=== PATIENT | female | born 1995 | race Two or more races ===

== ENCOUNTER 2018-03-17 17:32 | Inpatient (IN) ==
[2018-03-17] MEDS ORDERED: fentaNYL Citrate Inj 100 MCG/2 ML Ampul IV.PUSH PRN ×2 (17:38)
[2018-03-17] MEDS ORDERED: Naloxone Inj 0.4 MG/ML Vial IV.PUSH PRN (17:38)
[2018-03-17] MEDS ORDERED: Sodium Chlor 0.9% Inj 500 ML IV.SIG PRN (17:38)
[2018-03-17] MEDS ORDERED: Sod Chloride 0.9% Inj 1,000 ML IV.CONT PRN (17:38)
[2018-03-17] MEDS ORDERED: Citric Acid/Sodium Citrate Liq 30 ML UDC PO SCH (17:45)
[2018-03-17] MEDS ORDERED: Oxytocin 30 Units/500ml Premix 30 UNITS/500 ML BAG IV.SIG ONE (18:00)
[2018-03-17 18:50] LABS: Baso % (Auto) 0.5 % (0.0-2.0); Eos # (Auto) 0.1 th/mm3 (0.0-0.4); Eos % (Auto) 1.2 % (0.0-4.0); Hematocrit 35.7 % (35.0-46.0); Hemoglobin 11.7 gm/dL (11.6-15.3); Lymph # (Auto) 1.4 th/mm3 (1.0-4.8); Lymph % (Auto) 15.6 % (9.0-44.0); Mean Corpuscular HGB Conc 32.7 % (32.0-36.0); Mean Corpuscular Hemoglobin 30.2 pg (27.0-34.0); Mean Corpuscular Volume 92.5 fL (80.0-100.0); Mean Platelet Volume 10.1 fL (7.0-11.0); Mono # (Auto) 0.4 th/mm3 (0.0-0.9); Neut # (Auto) 6.9 th/mm3 (1.8-7.7); Neut % (Auto) 77.7 % (16.0-70.0); Platelet Count 307 th/mm3 (150-450); Red Blood Count 3.86 mil/mm3 (4.00-5.30); Red Cell Distribution Width 14.4 % (11.6-17.2); White Blood Count 8.9 th/mm3 (4.0-11.0)
--- NOTE | 2018-03-17 18:56 | MH ---
cc: Any Leon MD DATE OF ADMISSION: 03/17/2018 INDICATIONS FOR OBSERVATION: A 37 week intrauterine with contractions and cervical change, HIV positive, recent HSV infection that appears cleared, schizoaffective disorder, hepatitis C. HISTORY OF PRESENT CONDITION: Natasha is a 22-year-old, single female, 1, para 0, with LMP 06/17/2017 and EDC 04/07/2018 by 13-week ultrasound. By her LMP, it should be 03/24/2017, but a dating sonogram at 13 weeks gave a greater than 2-week differential. She is currently at 37 weeks by this ultrasound and 39 weeks by her LMP. She has been a patient of my practice since 13 weeks. She came to the office today complaining of back pain and pelvic pressure. Her cervix is 1-2, 90%, 0 station. Estimated weight is 7 pounds and pelvis is clinically adequate, but unproven. history is highly significant for HIV diagnosed 1 year prior, hepatitis C, history of IV drug use, recurrent genital herpes last infection within the last month. Rarden I Diagnosis: Schizoaffective versus schizophrenia. The patient has not had labor, gestational diabetes or hypertensive disease. I met her through the [facility] where she was incarcerated for possession of cocaine. She had been incarcerated for approximately a month and had learned that she was while incarcerated. She had not been sure at that point, if she was adopting the baby out. She was not receiving any retrovirals at that time. She told me that she had been told that her viral load was low. She stated her last IV drug use, had been 6 months prior to our initial visit in September, but she had been snorting heroin up to 1 month prior to her initial visit. She has since then had consistent care in the office and has been compliant, despite needing to use [facility] from [place] for her visits. She is currently staying with her boyfriend who is a and who is considerably older, but has been very supportive of her. At her initial couple visits, she was exceptionally manic and difficult to work with. She was started on Risperdal at the same time she was started on her retroviral, specifically Descovy and Tivicay. Her Risperdal was at 3 mg daily and within a week or 2 of initiating the Risperdal, she became very appropriate and logical in her thinking and behavior. Her initial viral load in September was 39,000. Her most recent viral load was nondetectable. She is hep C positive and I do not have a recent hep C viral load. She had a herpetic outbreak about 3 weeks ago and has been on valacyclovir ever since. We were not aware that she had a history of genital herpes, prior to that outbreak. She is situated with [facility] and other care coordinated services through the critical access hospital and receiving [employer], food stamps, I believe housing support. She sees Dr. Domenic Julian for her infectious disease specialist, and me for her obstetrical care. She denies today leaking or bleeding. She has no nausea, vomiting, headache, blurred vision, or right upper quadrant tenderness. She states she is having no perineal itching, burning, or tingles, and that the herpetic infection she noted 3 weeks ago has cleared up completely. She has been compliant with her Descovy and Tivicay, Risperdal, Bactrim and Valtrex. is a vertex female with a posterior placenta. surveillance has been reassuring. She has not been smoking, drinking, or using illicit drugs. PHYSICAL EXAMINATION: GENERAL: She is a well-developed, overweight female, in no acute distress. She is alert and oriented x 3, appropriate, logical and linear. She has gained over 80 pounds during this ; I believe that is largely due to the Risperdal. She has no thyroid enlargement. She has no lymphadenopathy. LUNGS: Clear to auscultation. HEART: Rate and rhythm are regular. ABDOMEN: Fundus is term. The is vertex. Fluid level is normal. I think her HARRY is about 15. She got 8/8 on biophysical profile today. She has no hepatosplenomegaly. No CVA tenderness. No inguinal adenopathy. Perineum is healthy without any ulcers, lesions, HPV changes. Cervix is 2 cm, 90%, very low. EXTREMITIES: Reveal mild edema. No significant varicosities. No lesions of concern. IMPRESSION: 1. A 37-week intrauterine by 13-week ultrasound. HIV identified 1 year prior, initiation of retrovirals after first trimester, recurrent genital herpes, with an episode approximately 3 weeks ago, positive for hepatitis C on screening. 2. Schizoaffective disorder versus schizophrenia on Risperdal. 3. Poor dentition. 4. Nicotine disorder. PLAN: Begin AZT on admission, obtain viral loads and other serology needed. Call infectious disease. Dr. Julian feels at this time, it is reasonable for her to proceed with a vaginal delivery if she desires. We are to get a PCR on the cord blood at delivery, and we will notify [facility] of her admission and next steps. Any Leon MD PPC/gregorio , 05:36 PM , 05:51 PM
[2018-03-17] MEDS ORDERED: DEXTROSE 5% IV.SIG ONE ×2 (20:00)
[2018-03-17] MEDS ORDERED: ZIDOVUDINE IV.SIG ONE ×2 (20:00)
[2018-03-17] MEDS ORDERED: WATER IV.SIG ONE ×2 (20:00)
[2018-03-17] MEDS ORDERED: Oxytocin 30 Units/500ml Premix 30 UNITS/500 ML BAG IV.SIG PRN (20:19)
--- NOTE | 2018-03-17 20:25 | P.OBANTE ---
Subjective Interval History: Natasha states she has not been taking her respirdal because it made her too lethargic. She remains lucid and appropriate so we will not restart at this time. Objective Vital Signs and I&O: Vital Signs 03/17/18 18:24 03/17/18 18:30 03/17/18 19:37 Temperature 98.0 F Pulse Rate 76 82 Respiratory Rate 16 Blood Pressure 139/67 135/71 Intake & Output 03/17/18 03/17/18 03/18/18 06:59 18:59 06:59 Weight 122.47 kg Lab and Micro Results: Laboratory Results - last 24 hr 03/17/18 03/17/18 18:00 18:00 WBC 8.9 RBC 3.86 L Hgb 11.7 Hct 35.7 MCV 92.5 MCH 30.2 MCHC 32.7 RDW 14.4 Plt Count 307 MPV 10.1 Neut % (Auto) 77.7 H Lymph % (Auto) 15.6 Edmunds % (Auto) 5.0 Eos % (Auto) 1.2 Baso % (Auto) 0.5 Neut # (Auto) 6.9 Lymph # (Auto) 1.4 Edmunds # (Auto) 0.4 Eos # (Auto) 0.1 Baso # (Auto) 0.0 WBC Differential . Differential Comment Auto diff final Blood Type A Positive Blood Type Recheck Required Physical Exam: GENERAL: Well-nourished, well-developed patient. CARDIOVASCULAR: Regular rate and rhythm without murmurs, gallops, or rubs. RESPIRATORY: Breath sounds equal bilaterally. No accessory muscle use. ABDOMEN/GI: Abdomen soft, non-tender. term fundus cervix 1+90-1 EFW 7 pounds pelvis clinically adequate unproven strip category one EXTREMITIES: No cyanosis or edema, non-tender, without signs of DVT. Assessment and Plan - Diagnosis (1) HIV (human immunodeficiency virus) risk factors complicating Code(s): O09.899 - Supervision of other high risk pregnancies, unspecified trimester Status: Acute (2) HSV infection Code(s): F20.9 - Schizophrenia, unspecified Status: Acute (3) Anxiety and depression Code(s): F41.9 - Anxiety disorder, unspecified; F32.9 - Major depressive disorder, single episode, unspecified Status: Acute (4) HSV infection Code(s): F20.9 - Schizophrenia, unspecified Status: Acute - Plan reviewed discussion with Dr. Julian. He reports viral load undetectable for HIV and HSV and that she is a candidate for vaginal delivery starting her AZT now. will begin low dose pitocin continue her usual retrovirals continue valcyclovir we will not resume her respirdal since she has not been taking this
[2018-03-17 20:46] LABS: Bilirubin,Urine Negative (Negative); Clarity,Urine Clear (Clear); Color,Urine Yellow (Yellw/Straw); Glucose,Urine (UA) Negative (Negative); Leukocyte Esterase,Urine Negative (Negative); Mucus,Urine Few /lpf (Occasional); Nitrite,Urine Negative (Negative); Specific Gravity,Urine 1.023 (1.002-1.035); Squamous Epithelial Cell,Urine 1 /hpf (0-5); Urobilinogen,Urine 4 or Greater mg/dL (Less than 2)
[2018-03-17 20:49] LABS: Amphetamine Urine With Conf Neg (Neg); Benzodiazepine Urine With Conf Neg (Neg)
[2018-03-17 21:04] LABS: Albumin 2.5 g/dL (3.4-5.0)
[2018-03-17 21:06] LABS: Total Protein 7.1 g/dL (6.4-8.2)
[2018-03-17] MEDS: valACYclovir 500 MG Tab PO SCH (22:00)
[2018-03-18] MEDS ORDERED: Penicillin G Potassium Inj 5,000,000 UNIT in Sodium Chloride 0.9% Inj 100 ML IV.SIG ONE (02:37)
[2018-03-18] MEDS: Penicillin G Potassium Inj 2,500,000 UNIT in Sodium Chlor 0.9% Inj 100 ML IV.SIG SCH ×4 (07:24→21:13)
[2018-03-18] MEDS ORDERED: fentaNYL 2MCG-Bupiv 0.125% Epi 150 ML EPIDURAL ONE (09:12)
[2018-03-18] MEDS ORDERED: Lidocaine PF 1.5% Inj 20 ML Ampule ONE (09:22)
[2018-03-18] MEDS: valACYclovir 500 MG Tab PO SCH ×2 (10:12→22:11)
[2018-03-18] MEDS ORDERED: fentaNYL Citrate Inj 100 MCG/2 ML Ampul EPIDURAL ONE (10:21)
[2018-03-18] MEDS ORDERED: fentaNYL 2MCG-Bupiv 0.125% Epi 150 ML EPIDURAL PRN (10:21)
--- NOTE | 2018-03-18 13:48 | P.OBLABOR ---
Subjective Interval history: Had AROM by me at 6:45. Was painful now has epidural and more comfortable has visitors Objective Vital Signs: Vital Signs - 8 hr 03/18/18 06:42 03/18/18 06:45 03/18/18 07:25 Temperature Pulse Rate 73 Respiratory Rate 16 18 Blood Pressure 124/80 03/18/18 08:11 03/18/18 08:12 03/18/18 09:27 Temperature 97.9 F Pulse Rate 75 83 Respiratory Rate 18 Blood Pressure 126/86 138/119 H 03/18/18 09:41 03/18/18 09:56 03/18/18 09:57 Temperature Pulse Rate 75 74 Respiratory Rate 18 Blood Pressure 135/78 139/62 03/18/18 10:07 03/18/18 10:10 03/18/18 10:45 Temperature Pulse Rate 73 76 Respiratory Rate 18 18 Blood Pressure 139/58 L 135/69 03/18/18 11:01 03/18/18 11:31 03/18/18 11:40 Temperature Pulse Rate 78 78 Respiratory Rate 18 Blood Pressure 134/72 139/85 03/18/18 12:01 03/18/18 12:16 03/18/18 12:31 Temperature Pulse Rate 75 78 Respiratory Rate 18 Blood Pressure 136/71 142/85 H 03/18/18 13:01 03/18/18 13:15 03/18/18 13:33 Temperature 97.6 F Pulse Rate 81 77 Respiratory Rate 18 18 Blood Pressure 149/86 H 136/81 Objective: Cervix 5 cm 90 %/-2 but not well applied mild caput strip reactive and category one receiving PCN for GBS UCs palpate every 2-3 minutes and are mild to moderate pitocin at 12 mu/min Patient Started Active Labor: Yes Artificial Rupture of Membrane: Yes Assessment and Plan - Diagnosis (1) HIV (human immunodeficiency virus) risk factors complicating Code(s): O09.899 - Supervision of other high risk pregnancies, unspecified trimester Status: Acute (2) HSV infection Code(s): F20.9 - Schizophrenia, unspecified Status: Acute (3) Anxiety and depression Code(s): F41.9 - Anxiety disorder, unspecified; F32.9 - Major depressive disorder, single episode, unspecified Status: Acute - Plan reviewed discussion with Dr. Julian. He reports viral load undetectable for HIV and HSV and that she is a candidate for vaginal delivery starting her AZT now. will begin low dose pitocin continue her usual retrovirals continue valcyclovir we will not resume her respirdal since she has not been taking this 03/18/18 1:45 anticipate unless otherwise indicated no FSE or facilitated vaginal delivery
--- NOTE | 2018-03-18 17:50 | P.OBDELI ---
Weeks Gestation: 37 Patient Started Active Labor: Yes Medical Induction of Labor: Yes Artificial Rupture of Membrane: Yes Anesthesia: Epidural Episiotomy: none Vaginal Delivery: Normal Presentation: Occiput posterior Nuchal Cord: x1 Delayed Cord Clamping (45 sec): Yes Placenta: Spontaneous delivery, Intact, 3 vessel cord Laceration: Perineal, 1 deg Repair: Chromic interrupted Estimated blood loss (mL): 200 Infant: Female Female A Infant Delivery Date: 03/18/18 Infant Delivery Time: 17:49 Weight: 2.8 kg score (1 min): 8 score (5 min): 9 Additional Information: extra blood from cord in lavender top on ice to lab for HIV PCR
[2018-03-18] MEDS ORDERED: Acetaminophen 325 MG Tablet PO PRN (17:51)
[2018-03-18] MEDS ORDERED: Oxytocin 30 Units/500ml Premix 30 UNITS/500 ML BAG IV.CONT PRN (17:51)
[2018-03-18] MEDS ORDERED: Zolpidem Tartrate 5 MG Tablet PO PRN (17:51)
[2018-03-18] MEDS ORDERED: Benzocaine 20% Top Spray 60 ML Can TOPICAL PRN (17:51)
[2018-03-18] MEDS ORDERED: Naloxone Inj 0.4 MG/ML Vial IV.PUSH PRN (17:51)
[2018-03-18] MEDS ORDERED: Witch Hazel 50%/Glyderin 12.5% 40 Pad Jar RECTAL PRN (17:51)
[2018-03-18] MEDS ORDERED: Bisacodyl 10 MG Supp RECTAL PRN (17:51)
[2018-03-18] MEDS ORDERED: Diphtheria/Tetanus/Pertussis Vaccine Inj 0.5 ML Syringe IM ONE (20:00)
[2018-03-18] MEDS ORDERED: Measles/Mumps/Rubella Vaccine Inj 0.5 ML Vial SQ ONE (20:00)
[2018-03-18] MEDS ORDERED: valACYclovir 500 MG Tab PO SCH (21:00)
[2018-03-18] MEDS: Senna/Docusate Sodium 8.6/50 MG Tablet PO SCH (22:12)
[2018-03-19] MEDS: valACYclovir 500 MG Tab PO SCH ×2 (09:52→20:54)
[2018-03-19] MEDS: Senna/Docusate Sodium 8.6/50 MG Tablet PO SCH ×2 (09:52→20:53)
--- NOTE | 2018-03-19 15:42 | P.PNOB ---
Subjective Post day: 1 Interval history: Doing well Baby is doing well Pain is controlled Bleeding is good Tolerating diet. Objective Vital Signs/I&O: Vital Signs 03/18/18 16:01 03/18/18 16:06 03/18/18 16:35 Temperature Pulse Rate 82 75 Respiratory Rate 18 Blood Pressure 131/78 131/81 03/18/18 17:05 03/18/18 17:20 03/18/18 17:45 Temperature Pulse Rate 75 74 70 Respiratory Rate 18 Blood Pressure 145/87 H 141/65 H 161/70 H 03/18/18 17:46 03/18/18 17:58 03/18/18 18:01 Temperature Pulse Rate 78 91 H Respiratory Rate 18 Blood Pressure 155/134 H 141/71 H 03/18/18 18:15 03/18/18 18:30 03/18/18 18:31 Temperature 98.2 F Pulse Rate 76 87 Respiratory Rate 18 18 Blood Pressure 147/82 H 151/101 H 03/18/18 18:46 03/18/18 19:04 03/18/18 19:15 Temperature Pulse Rate 89 88 Respiratory Rate 18 Blood Pressure 155/76 H 163/54 H 03/18/18 19:59 03/18/18 20:09 03/18/18 21:18 Temperature 98.5 F Pulse Rate 102 H 80 Respiratory Rate 18 20 Blood Pressure 134/71 93/75 L 03/19/18 06:45 Temperature 98.4 F Pulse Rate 73 Respiratory Rate 18 Blood Pressure 135/62 Intake & Output 03/18/18 03/19/18 03/19/18 18:59 06:59 18:59 Intake Total 1949 Balance 1949 Intake: IV 1949 LR 1000 mL Inj 1,000 ML @ 125 1000 / 1000 mls/hr IV.CONT .Q8H [facility] Rx#: [id number] Retrovir Inj 400 MG In D5W Inj 750 / 750 210 ML @ 1 MG/KG/HR 76.54 mls/ hr IV.CONT .Q3H16M [facility] Rx#: [id number] Pfizerpen-G Inj 2,500,000 UNIT 200 / 200 In NS Inj 100 ML @ 200 mls/hr IV.SIG Q4H [facility] Rx#:[id number] Result Diagrams: 03/17/18 18:00 Objective Remarks: GENERAL: Well-nourished, well-developed patient. CARDIOVASCULAR: Regular rate and rhythm without murmurs, gallops, or rubs. RESPIRATORY: Breath sounds equal bilaterally. No accessory muscle use. ABDOMEN/GI: Abdomen soft, non-tender. Fundus: Firm, non-tender at umbilicus. GENITOURINARY: Light to moderate bleeding. EXTREMITIES: No cyanosis or edema, non-tender, without signs of DVT. Assessment and Plan - Plan PPD #1 Doing well Routine care Need to check HIV pcr from cord blood.
[2018-03-20] MEDS: valACYclovir 500 MG Tab PO SCH ×2 (08:52→21:09)
[2018-03-20] MEDS: Senna/Docusate Sodium 8.6/50 MG Tablet PO SCH ×2 (08:52→21:09)
--- NOTE | 2018-03-20 14:07 | P.PNOB ---
Subjective Post day: 2 Interval history: Doing well pain controlled with the motrin Bleeding is normal Not sure if the baby is discharged. Tolerating diet Objective Vital Signs/I&O: Vital Signs 03/19/18 20:00 03/20/18 08:00 Temperature 98.6 F 97.6 F Pulse Rate 73 70 Respiratory Rate 18 16 Blood Pressure 118/78 122/65 Result Diagrams: 03/17/18 18:00 Objective Remarks: GENERAL: Well-nourished, well-developed patient. CARDIOVASCULAR: Regular rate and rhythm without murmurs, gallops, or rubs. RESPIRATORY: Breath sounds equal bilaterally. No accessory muscle use. ABDOMEN/GI: Abdomen soft, non-tender. Fundus: Firm, non-tender at umbilicus. GENITOURINARY: Light to moderate bleeding. EXTREMITIES: No cyanosis or edema, non-tender, without signs of DVT. Medications and IVs: Active Medications Acetaminophen (Tylenol) 650 mg PO Q4H PRN PRN Reason: PAIN SCALE 1 TO 2 Al Hydroxide/Mg Hydroxide (Milk Of Magnesia Liq) 30 ml PO Q12H PRN PRN Reason: Mild Constipation Benzocaine (Americaine 20% [place]) 1 spray TOPICAL Q4H PRN PRN Reason: For Perineum Discomfort Last Admin: 03/18/18 22:11 Dose: 1 spray Bisacodyl (Dulcolax Supp) 10 mg RECTAL DAILY PRN PRN Reason: SEVERE CONSITIPATION Citric Acid/Sodium Citrate (Sodium Citrate/Citric Acid Liq) 30 ml PO MIXING MACHINE [employer] [facility] Stop: 03/21/18 17:44 Dolutegravir Sodium (Tivicay) 50 mg PO DAILY [facility] Last Admin: 03/20/18 08:52 Dose: 50 mg Emtricitabine/Tenofovir (Truvada 200/300 Mg) 1 tab PO DAILY [facility] Last Admin: 03/20/18 08:52 Dose: 1 tab Fentanyl Citrate (Fentanyl Inj) 50 mcg IV.PUSH Q1H PRN PRN Reason: Pain Scale 3 - 5 Last Admin: 03/18/18 04:46 Dose: 50 mcg Fentanyl Citrate (Fentanyl Inj) 100 mcg IV.PUSH Q1H PRN PRN Reason: PAIN SCALE 6 TO 10 Last Admin: 03/18/18 08:14 Dose: 100 mcg Lactated Ringer's (Lr 1000 Ml Inj) 1,000 mls @ 125 mls/hr IV.CONT .Q8H [facility] Last Admin: 03/19/18 06:38 Dose: Not Given Lactated Ringer's (Lr 1000 Ml Inj) 1,000 mls @ 3,000 mls/hr IV.SIG UNSCH PRN PRN Reason: compromise or epidural Sodium Chloride (Ns Inj) 500 mls @ 1,000 mls/hr IV.SIG UNSCH PRN PRN Reason: SEE LABEL COMMENTS Sodium Chloride (Ns Inj) 1,000 mls @ 100 mls/hr IV.CONT .Q10H PRN PRN Reason: SEE LABEL COMMENTS Oxytocin (Pitocin 30 Units/Ns 500 Ml Premix) 30 units in 500 mls @ 1 mls/hr IV.SIG TITRATE PRN; Protocol PRN Reason: For induction of labor Last Admin: 03/18/18 00:05 Dose: 1 milliunit/min, 1 mls/hr Fentanyl/Bupivacaine/Sodium Chlor (Fentanyl 2 Mcg-Bupiv 0.125% Epi) 150 mls @ 12 mls/hr EPIDURAL PRN PRN PRN Reason: for Labor Pain Last Admin: 03/18/18 10:37 Dose: 12 mls/hr Oxytocin (Pitocin 30 Units/Ns 500 Ml Premix) 30 units in 500 mls @ 100 mls/hr IV.CONT UNSCH PRN PRN Reason: Heavy bleeding Ibuprofen (Motrin) 800 mg PO Q8H PRN PRN Reason: For Cramping Last Admin: 03/20/18 12:01 Dose: 800 mg Lactulose (Lactulose Liq) 30 ml PO DAILY PRN PRN Reason: SEVERE CONSITIPATION Lidocaine HCl (Xylocaine 1% Inj) 0.1 ml I-DERMAL PRN PRN PRN Reason: For IV start Stop: 03/20/18 17:37 Mineral Oil (Muri-Lube Oil) 10 ml TOPICAL UNSCH PRN PRN Reason: PRN perineal massage Naloxone HCl (Narcan Inj) 0.1 mg IV.PUSH Q2M PRN PRN Reason: for opiate reversal Naloxone HCl (Narcan Inj) 0.1 mg IV.PUSH Q2M PRN PRN Reason: for opiate reversal Ondansetron HCl (Zofran Odt) 4 mg PO Q6H PRN PRN Reason: NAUSEA OR VOMITING Risperidone (Risperdal) 3 mg PO DAILY [facility] Last Admin: 03/20/18 08:55 Dose: Not Given Senna/Docusate Sodium (Gracy-Colace) 1 tab PO BID [facility] Last Admin: 03/20/18 08:52 Dose: 1 tab Sennosides (Senokot) 17.2 mg PO Q12H PRN PRN Reason: Moderate Constipation Sodium Chloride (Ns Flush) 2 ml IV.FLUSH BID [facility] Last Admin: 03/20/18 08:55 Dose: Not Given Sodium Chloride (Ns Flush) 2 ml IV.FLUSH UNSCH PRN PRN Reason: FLUSH AFTER USING IV ACCESS Sodium Chloride (Ns Flush) 2 ml IV.FLUSH BID [facility] Last Admin: 03/20/18 08:55 Dose: Not Given Sodium Chloride (Ns Flush) 2 ml IV.FLUSH PRN PRN PRN Reason: FLUSH AFTER USING IV ACCESS Valacyclovir HCl (Valtrex) 500 mg PO Q12HR [facility] Last Admin: 03/20/18 08:52 Dose: 500 mg Witch Jillian/Glycerin (Tucks Pads) 1 applicatio RECTAL QID PRN PRN Reason: HEMORRHOIDS Last Admin: 03/18/18 22:11 Dose: 1 applicatio Zolpidem Tartrate (Ambien) 5 mg PO HS PRN PRN Reason: SLEEP Assessment and Plan - Plan PPD #2 Doing well Routine care Need to check HIV pcr from cord blood. We will keep her til tomorrow due to her HIV and the HIV pcr from cord blood is still pending. Need to check with peds regarding when the baby can go home.
--- NOTE | 2018-03-21 08:07 | P.PNOB ---
Subjective Post day: 3 Interval history: PPD#3, Stable, plan discharge today. Will stay on current HIV regiment. RTO in 1 week Objective Vital Signs/I&O: Vital Signs 03/20/18 20:00 Temperature 98.2 F Pulse Rate 85 Respiratory Rate 18 Blood Pressure 140/72 Result Diagrams: 03/17/18 18:00 Objective Remarks: GENERAL: Well-nourished, well-developed patient. CARDIOVASCULAR: Regular rate and rhythm without murmurs, gallops, or rubs. RESPIRATORY: Breath sounds equal bilaterally. No accessory muscle use. ABDOMEN/GI: Abdomen soft, non-tender. Fundus: Firm, non-tender at umbilicus. GENITOURINARY: Light to moderate bleeding. EXTREMITIES: No cyanosis or edema, non-tender, without signs of DVT. Medications and IVs: Active Medications Acetaminophen (Tylenol) 650 mg PO Q4H PRN PRN Reason: PAIN SCALE 1 TO 2 Al Hydroxide/Mg Hydroxide (Milk Of Magnesia Liq) 30 ml PO Q12H PRN PRN Reason: Mild Constipation Benzocaine (Americaine 20% [place]) 1 spray TOPICAL Q4H PRN PRN Reason: For Perineum Discomfort Last Admin: 03/18/18 22:11 Dose: 1 spray Bisacodyl (Dulcolax Supp) 10 mg RECTAL DAILY PRN PRN Reason: SEVERE CONSITIPATION Citric Acid/Sodium Citrate (Sodium Citrate/Citric Acid Liq) 30 ml PO [employer] [facility] Stop: 03/21/18 17:44 Dolutegravir Sodium (Tivicay) 50 mg PO DAILY [facility] Last Admin: 03/20/18 08:52 Dose: 50 mg Emtricitabine/Tenofovir (Truvada 200/300 Mg) 1 tab PO DAILY [facility] Last Admin: 03/20/18 08:52 Dose: 1 tab Fentanyl Citrate (Fentanyl Inj) 50 mcg IV.PUSH Q1H PRN PRN Reason: Pain Scale 3 - 5 Last Admin: 03/18/18 04:46 Dose: 50 mcg Fentanyl Citrate (Fentanyl Inj) 100 mcg IV.PUSH Q1H PRN PRN Reason: PAIN SCALE 6 TO 10 Last Admin: 03/18/18 08:14 Dose: 100 mcg Lactated Ringer's (Lr 1000 Ml Inj) 1,000 mls @ 125 mls/hr IV.CONT .Q8H [facility] Last Admin: 03/19/18 06:38 Dose: Not Given Lactated Ringer's (Lr 1000 Ml Inj) 1,000 mls @ 3,000 mls/hr IV.SIG UNSCH PRN PRN Reason: compromise or epidural Sodium Chloride (Ns Inj) 500 mls @ 1,000 mls/hr IV.SIG UNSCH PRN PRN Reason: SEE LABEL COMMENTS Sodium Chloride (Ns Inj) 1,000 mls @ 100 mls/hr IV.CONT .Q10H PRN PRN Reason: SEE LABEL COMMENTS Oxytocin (Pitocin 30 Units/Ns 500 Ml Premix) 30 units in 500 mls @ 1 mls/hr IV.SIG TITRATE PRN; Protocol PRN Reason: For induction of labor Last Admin: 03/18/18 00:05 Dose: 1 milliunit/min, 1 mls/hr Fentanyl/Bupivacaine/Sodium Chlor (Fentanyl 2 Mcg-Bupiv 0.125% Epi) 150 mls @ 12 mls/hr EPIDURAL PRN PRN PRN Reason: for Labor Pain Last Admin: 03/18/18 10:37 Dose: 12 mls/hr Oxytocin (Pitocin 30 Units/Ns 500 Ml Premix) 30 units in 500 mls @ 100 mls/hr IV.CONT UNSCH PRN PRN Reason: Heavy bleeding Ibuprofen (Motrin) 800 mg PO Q8H PRN PRN Reason: For Cramping Last Admin: 03/20/18 20:10 Dose: 800 mg Lactulose (Lactulose Liq) 30 ml PO DAILY PRN PRN Reason: SEVERE CONSITIPATION Mineral Oil (Muri-Lube Oil) 10 ml TOPICAL UNSCH PRN PRN Reason: PRN perineal massage Naloxone HCl (Narcan Inj) 0.1 mg IV.PUSH Q2M PRN PRN Reason: for opiate reversal Naloxone HCl (Narcan Inj) 0.1 mg IV.PUSH Q2M PRN PRN Reason: for opiate reversal Ondansetron HCl (Zofran Odt) 4 mg PO Q6H PRN PRN Reason: NAUSEA OR VOMITING Risperidone (Risperdal) 3 mg PO DAILY [facility] Last Admin: 03/20/18 08:55 Dose: Not Given Senna/Docusate Sodium (Gracy-Colace) 1 tab PO BID [facility] Last Admin: 03/20/18 21:09 Dose: 1 tab Sennosides (Senokot) 17.2 mg PO Q12H PRN PRN Reason: Moderate Constipation Sodium Chloride (Ns Flush) 2 ml IV.FLUSH BID [facility] Last Admin: 03/21/18 03:53 Dose: Not Given Sodium Chloride (Ns Flush) 2 ml IV.FLUSH UNSCH PRN PRN Reason: FLUSH AFTER USING IV ACCESS Sodium Chloride (Ns Flush) 2 ml IV.FLUSH BID [facility] Last Admin: 03/21/18 03:53 Dose: Not Given Sodium Chloride (Ns Flush) 2 ml IV.FLUSH PRN PRN PRN Reason: FLUSH AFTER USING IV ACCESS Valacyclovir HCl (Valtrex) 500 mg PO Q12HR [facility] Last Admin: 03/20/18 21:09 Dose: 500 mg Witch Jillian/Glycerin (Tucks Pads) 1 applicatio RECTAL QID PRN PRN Reason: HEMORRHOIDS Last Admin: 03/18/18 22:11 Dose: 1 applicatio Zolpidem Tartrate (Ambien) 5 mg PO HS PRN PRN Reason: SLEEP Assessment and Plan - Diagnosis (1) HIV (human immunodeficiency virus) risk factors complicating Code(s): O09.899 - Supervision of other high risk pregnancies, unspecified trimester Status: Acute (2) HSV infection Code(s): F20.9 - Schizophrenia, unspecified Status: Acute (3) Anxiety and depression Code(s): F41.9 - Anxiety disorder, unspecified; F32.9 - Major depressive disorder, single episode, unspecified Status: Acute - Plan PPD #2 Doing well Routine care Need to check HIV pcr from cord blood. We will keep her til tomorrow due to her HIV and the HIV pcr from cord blood is still pending. Need to check with peds regarding when the baby can go home. PPD#3 Stable, plan discharge home today, needs 1 week visit.
[2018-03-21] MEDS: valACYclovir 500 MG Tab PO SCH (08:17)
[2018-03-21] MEDS: Senna/Docusate Sodium 8.6/50 MG Tablet PO SCH (08:18)
[2018-03-21 09:13] VITALS: BP 126/72; RESP 17; TEMP 98.1; O2SAT 98
[2018-03-21 11:14] VITALS: PULSE 85
[2018-03-21] MEDS ORDERED: Influenza (Quadrivalent) Vaccine 0.5 ML Syringe IM ONE (15:45)
[2018-03-21] MEDS ORDERED: Diphtheria/Tetanus/Pertussis Vaccine Inj 0.5 ML Syringe IM ONE (15:45)
--- NOTE | 2018-03-21 16:54 | P.CONPSY ---
Provisional Diagnosis Admission Date: March 17, 2018 17:44 [place] I.: Adjustment disorder with depressed mood, history of bipolar disorder, schizoaffective disorder, anxiety History of Present Illness Service: Medicine Primary Care Provider: No Primary Care Physician History of Present Illness: The patient is a 22-year-old woman, domiciled in [place] with her boyfriend, unemployed, with a psychiatric history of anxiety, schizoaffective disorder, multiple psychiatric hospitalizations, last hospitalization was about 2 years ago, 3 suicide attempts, extensive history of self cutting behavior, she is noted medications, no outpatient care, history of heroine use disorder, she is in sustained full remission, no significant medical history, who was [place], day 3. Patient was consulted to psychiatry to addressed mood swings. On psychiatric evaluation the patient is calm, cooperative, reports good mood. She says that she feels happy to have her baby , even though she says that she has being emotional. Patient reports that she is motivated to raise her kids in the right way, to find a job and continue her sobriety. She denies depression, denies anxiety at the moment, denies al and psychosis. She says that she prefers to continue her life without medications. Denies suicidal and was ideation, she denies visual and auditory hallucinations. The patient is logical, coherent and relevant. Oriented x3. [facility] - Medical History Medical History: Medical History (Last Updated 02/07/18 @ 12:04 by Gabbie Bauer MD) HSV infection (Acute) Anxiety and depression (Acute) Medications and Allergies Active Medications: Active Medications Acetaminophen (Tylenol) 650 mg PO Q4H PRN PRN Reason: PAIN SCALE 1 TO 2 Al Hydroxide/Mg Hydroxide (Milk Of Magnesia Liq) 30 ml PO Q12H PRN PRN Reason: Mild Constipation Benzocaine (Americaine 20% Top Cranberry) 1 spray TOPICAL Q4H PRN PRN Reason: For Perineum Discomfort Last Admin: 03/18/18 22:11 Dose: 1 spray Bisacodyl (Dulcolax Supp) 10 mg RECTAL DAILY PRN PRN Reason: SEVERE CONSITIPATION Citric Acid/Sodium Citrate (Sodium Citrate/Citric Acid Liq) 30 ml PO DIRECTOR OF PUBLIC HEALTH COUNTS INCLUDE 234 BEDS AT THE [facility] Stop: 03/21/18 17:44 Dolutegravir Sodium (Tivicay) 50 mg PO DAILY COUNTS INCLUDE 234 BEDS AT THE [facility] Last Admin: 03/21/18 08:17 Dose: 50 mg Emtricitabine/Tenofovir (Truvada 200/300 Mg) 1 tab PO DAILY COUNTS INCLUDE 234 BEDS AT THE [facility] Last Admin: 03/21/18 08:18 Dose: 1 tab Fentanyl Citrate (Fentanyl Inj) 50 mcg IV.PUSH Q1H PRN PRN Reason: Pain Scale 3 - 5 Last Admin: 03/18/18 04:46 Dose: 50 mcg Fentanyl Citrate (Fentanyl Inj) 100 mcg IV.PUSH Q1H PRN PRN Reason: PAIN SCALE 6 TO 10 Last Admin: 03/18/18 08:14 Dose: 100 mcg Lactated Ringer's (Lr 1000 Ml Inj) 1,000 mls @ 125 mls/hr IV.CONT .Q8H COUNTS INCLUDE 234 BEDS AT THE [facility] Last Admin: 03/19/18 06:38 Dose: Not Given Lactated Ringer's (Lr 1000 Ml Inj) 1,000 mls @ 3,000 mls/hr IV.SIG UNSCH PRN PRN Reason: compromise or epidural Sodium Chloride (Ns Inj) 500 mls @ 1,000 mls/hr IV.SIG UNSCH PRN PRN Reason: SEE LABEL COMMENTS Sodium Chloride (Ns Inj) 1,000 mls @ 100 mls/hr IV.CONT .Q10H PRN PRN Reason: SEE LABEL COMMENTS Oxytocin (Pitocin 30 Units/Ns 500 Ml Premix) 30 units in 500 mls @ 1 mls/hr IV.SIG TITRATE PRN; Protocol PRN Reason: For induction of labor Last Admin: 03/18/18 00:05 Dose: 1 milliunit/min, 1 mls/hr Fentanyl/Bupivacaine/Sodium Chlor (Fentanyl 2 Mcg-Bupiv 0.125% Epi) 150 mls @ 12 mls/hr EPIDURAL PRN PRN PRN Reason: for Labor Pain Last Admin: 03/18/18 10:37 Dose: 12 mls/hr Oxytocin (Pitocin 30 Units/Ns 500 Ml Premix) 30 units in 500 mls @ 100 mls/hr IV.CONT UNSCH PRN PRN Reason: Heavy bleeding Ibuprofen (Motrin) 800 mg PO Q8H PRN PRN Reason: For Cramping Last Admin: 03/21/18 08:40 Dose: 800 mg Lactulose (Lactulose Liq) 30 ml PO DAILY PRN PRN Reason: SEVERE CONSITIPATION Mineral Oil (Muri-Lube Oil) 10 ml TOPICAL UNSCH PRN PRN Reason: PRN perineal massage Naloxone HCl (Narcan Inj) 0.1 mg IV.PUSH Q2M PRN PRN Reason: for opiate reversal Naloxone HCl (Narcan Inj) 0.1 mg IV.PUSH Q2M PRN PRN Reason: for opiate reversal Ondansetron HCl (Zofran Odt) 4 mg PO Q6H PRN PRN Reason: NAUSEA OR VOMITING Risperidone (Risperdal) 3 mg PO DAILY COUNTS INCLUDE 234 BEDS AT THE [facility] Last Admin: 03/21/18 08:17 Dose: Not Given Senna/Docusate Sodium (Gracy-Colace) 1 tab PO BID COUNTS INCLUDE 234 BEDS AT THE [facility] Last Admin: 03/21/18 08:18 Dose: 1 tab Sennosides (Senokot) 17.2 mg PO Q12H PRN PRN Reason: Moderate Constipation Sodium Chloride (Ns Flush) 2 ml IV.FLUSH BID COUNTS INCLUDE 234 BEDS AT THE [facility] Last Admin: 03/21/18 08:18 Dose: Not Given Sodium Chloride (Ns Flush) 2 ml IV.FLUSH UNSCH PRN PRN Reason: FLUSH AFTER USING IV ACCESS Sodium Chloride (Ns Flush) 2 ml IV.FLUSH BID COUNTS INCLUDE 234 BEDS AT THE [facility] Last Admin: 03/21/18 08:18 Dose: Not Given Sodium Chloride (Ns Flush) 2 ml IV.FLUSH PRN PRN PRN Reason: FLUSH AFTER USING IV ACCESS Valacyclovir HCl (Valtrex) 500 mg PO Q12HR COUNTS INCLUDE 234 BEDS AT THE [facility] Last Admin: 03/21/18 08:17 Dose: 500 mg Witch Jillian/Glycerin (Tucks Pads) 1 applicatio RECTAL QID PRN PRN Reason: HEMORRHOIDS Last Admin: 03/18/18 22:11 Dose: 1 applicatio Zolpidem Tartrate (Ambien) 5 mg PO HS PRN PRN Reason: SLEEP Allergies Allergy/AdvReac Type Severity Reaction Status Date / Time aripiprazole [From [facility]] Allergy Severe unknown Verified 03/17/18 19:11 Home Medications Medication Instructions Recorded Confirmed Type Descovy 200 mg PO DAILY 03/18/18 03/18/18 History Diclegis 10 mg PO DAILY 03/18/18 03/18/18 History Tivicay 50 mg PO DAILY 03/18/18 03/18/18 History risperidone 1.5 mg PO DAILY 03/18/18 03/18/18 History Exam Vital signs: Vital Signs 03/20/18 20:00 03/21/18 08:00 Temperature 98.2 F 98.1 F Pulse Rate 85 80 Respiratory Rate 18 17 Blood Pressure 140/72 126/72 Pulse Oximetry 98 Mental Status Examination Appearance: Appropriate Consciousness: Alert Orientation: x4 Motor Activity: Normal gait Speech: Unremarkable Language: Adequate Fund of Knowledge: Adequate Attention and Concentration: Adequate Memory: Unremarkable Mood: Appropriate Affect: Appropriate Thought Process & Associations: Intact Thought Content: Appropriate Hallucination Type: None Delusion Type: None Suicidal Ideation: No Suicidal Plan: No Suicidal Intention: No Homicidal Ideation: No Homicidal Plan: No Homicidal Intention: No Insight: Adequate Judgment: Adequate Assessment and Plan - Assessment (1) Acute adjustment disorder Code(s): F41.9 - Anxiety disorder, unspecified; F32.9 - Major depressive disorder, single episode, unspecified Status: Acute - Plan Plan: On psychiatric evaluation today the patient is calm, cooperative, logical, coherent and relevant. She is in a good spirit, denies symptomatology of depression, denies anxiety, denies al and psychosis. She denies suicidal and homicidal ideation, she denies visual and auditory hallucinations. The patient is future oriented, motivated to continue sobriety, to take care of her baby, find a job as soon as possible. 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 Does not meet criteria for involuntary psychiatric admission at this moment. Prefers to avoid psychotropics at the moment. Support, motivational psych education provided. Justification for Continued Inpatient Stay: No admission is indicated
[2018-03-22 09:52] LABS: Hepatitis C RNA (PCR) log IUs 5.87
== END 2018-03-21 17:36 | disposition home or self-care (01) ==
LOC: H2E → H1EA 03-18 21:04
PROVIDERS: ADMIT Obstetrics & Gynecology; ATTEND Obstetrics & Gynecology